=== PATIENT | female | born 1965 | race Caucasian/White ===

== ENCOUNTER 2018-04-11 16:11 | Inpatient (IN) | payer OTHER ==
[2018-04-11] VITALS (16 sets, daily range): BP systolic 122–171; BP diastolic 71–98
[~2018-04-11] VITALS: Ht 172.7 cm; Wt 111.9 kg
[2018-04-11 16:45] LABS: BASOPHILS # (AUTO) 0.1 X10'3 (0-0.2); BASOPHILS % (AUTO) 0.6 % (0-1); EOSINOPHILS # (AUTO) 0.1 X10'3 (0-0.9); EOSINOPHILS % (AUTO) 1.7 % (0-6); HEMATOCRIT 36.9 % (35.0-45.0); HEMOGLOBIN 12.5 g/dl (12.0-16.0); LYMPHOCYTES # (AUTO) 2.3 X10'3 (1.1-4.8); LYMPHOCYTES % (AUTO) 26.6 % (21-51); MEAN CORPUSCULAR HEMOGLOBIN 31.1 PG (27.0-31.0); MEAN CORPUSCULAR HGB CONC 33.9 % (33.0-36.5); MEAN CORPUSCULAR VOLUME 91.8 FL (78-98); MEAN PLATELET VOLUME 7.8 FL (7.4-10.4); MONOCYTES # (AUTO) 0.4 X10'3 (0-0.9); MONOCYTES % (AUTO) 4.5 % (2-12); NEUTROPHILS # (AUTO) 5.8 X10'3 (1.8-7.7); NEUTROPHILS % (AUTO) 66.6 % (42-75); PLATELET COUNT 176 X10'3 (140-440); RED BLOOD COUNT 4.02 X10'6 (4.20-5.60); RED CELL DISTRIBUTION WIDTH 15.1 % (11.5-14.5); WHITE BLOOD COUNT 8.7 X10'3 (4.5-11.0)
[2018-04-11] MEDS ORDERED: metroNIDAZOLE-Flagyl 500mg/NS 100 ML IV STA (16:48)
[2018-04-11] MEDS ORDERED: vancomycin/NS 1 GM ADD-VANTAGE 250 ML IV ONE (16:50)
[2018-04-11] MEDS ORDERED: piperacillin/tazo 3.375gm/50ml 50 ML IV ONE (16:50)
[2018-04-11 16:56] LABS: ABG HCO3 17.8 mmol/L (22.0-26.0); ABG OXYGEN SATURATION 98.8 % (95-98); ABG PCO2 (T) 41.7 mmHg (32.0-45.0); ABG PH (T) 7.248 (7.350-7.450); ABG PO2 (T) 160.2 mmHg (83-108); ALLEN'S TEST Positive; FCOHb 1.4 % (0.5-1.5); FMetHb 0.3 % (0.3-1.12); FO2Hb 97.1 % (94-100); MINUTE VOLUME 9 L/min; PEEP 5 cm H2O; RESPIRATORY RATE 18 b/min; RESPIRATORY RATE (OBSERVED) 18 b/min; TIDAL VOLUME 500 mL; TOTAL HEMOGLOBIN 12.9 G/dl (12.0-16.0)
[2018-04-11 17:01] LABS: ALANINE AMINOTRANSFERASE 275 U/L (12-78); ALBUMIN 2.6 G/DL (3.4-5.0); ALBUMIN/GLOBULIN RATIO 0.6 (1.1-1.5); ALKALINE PHOSPHATASE 78 IU/L (46-116); ANION GAP 16 (8-16); ASPARTATE AMINO TRANSFERASE 249 U/L (10-37); BILIRUBIN,TOTAL 0.2 MG/DL (0.1-1.0); BLOOD UREA NITROGEN 13 MG/DL (7-18); BUN/CREATININE RATIO 10.5 (6.6-38.0); CALCIUM 7.6 MG/DL (8.5-10.1); CHLORIDE 99 MMOL/L (99-107); CREATININE 1.24 MG/DL (0.40-0.90); GLUCOSE 209 MG/DL (70-104); SODIUM 135 MMOL/L (135-145); TOTAL CARBON DIOXIDE 19.7 MMOL/L (24-32); TOTAL PROTEIN 6.9 G/DL (6.4-8.2); eGFR 45 ML/MIN
[2018-04-11 17:02] LABS: POTASSIUM 4.4 MMOL/L (3.5-5.1)
[2018-04-11 17:03] LABS: ANISOCYTOSIS FEW; PLATELET ESTIMATE NORMAL; TOTAL CELLS COUNTED 100
[2018-04-11] MEDS ORDERED: propofol 1000mg/100ml bottle 100 ML IV PRN (17:15)
[2018-04-11] MEDS ORDERED: propofol 1000mg/100ml bottle 100 ML IV ONE (17:18)
[2018-04-11 17:28] LABS: CLARITY,URINE SLIGHTLY CLOUDY (Clear); COLOR,URINE YELLOW (Yellow); GLUCOSE, URINE 100 mg/dl (Neg); KETONES,URINE 15 mg/dl (Neg); LEUKOCYTE ESTERASE ,URINE NEGATIVE (Neg); NITRITES, URINE NEGATIVE (Neg); OCCULT BLOOD,URINE NEGATIVE (Neg); PH,URINE 5.5 (4.8-8.0); PROTEIN,URINE 30 mg/dl (Neg); UROBILINOGEN,URINE 0.2 E.U/dL (0.2-1.0)
[2018-04-11] MEDS ORDERED: normal saline 1000ML IV soln IV ONE (17:30)
[2018-04-11 17:34] LABS: UA COLLECTION TYPE STRAIGHT CATH
[2018-04-11 17:38] LABS: AMORPHOUS URATES 1+; BACTERIA,URINE FEW /HPF (Neg); HYALINE CASTS 0-3 /LPF (NEGATIVE); MUCUS STRANDS FEW /LPF (Neg); RBC,URINE 0-2 /HPF (0-2); SQUAMOUS EPITHELIAL CELL,UR FEW /LPF (FEW); WBC,URINE 0-4 /HPF (0-4)
[2018-04-11] MEDS ORDERED: ondansetron/PF 4mg/2ml inj IV PRN (18:20)
[2018-04-11] MEDS ORDERED: ipratropium/albuterol 3ml nebule NEB PRN (18:20)
[2018-04-11] MEDS ORDERED: fentaNYL/PF 50MCG/1 ML 2ML syringe IV PRN (18:20)
[2018-04-11] MEDS ORDERED: acetaminophen 650mg rectal suppository RC PRN (18:20)
[2018-04-11] MEDS ORDERED: acetaminophen 325mg tablet PO PRN ×2 (18:20)
[2018-04-11] MEDS: normal saline 1000ml 1,000 ML IV SCH (18:52)
[2018-04-11] MEDS: pantoprazole 40 MG vial IV SCH (18:52)
[2018-04-11] MEDS ORDERED: midazolam 2 mg/2 ml injection ONE (19:04)
[2018-04-11] MEDS ORDERED: magnesium 4gm in 100ml NS 100 ML IV PRN (19:10)
[2018-04-11] MEDS ORDERED: magnesium/D5W IVPB 50 ML IV PRN (19:10)
[2018-04-11] MEDS ORDERED: magnesium Cl slow-release 64mg tablet PO PRN (19:10)
[2018-04-11] MEDS ORDERED: Neutra Phos packet PO PRN (19:10)
[2018-04-11] MEDS ORDERED: potassium Cl 40MEQ/250ML bag 250 ML IV PRN ×2 (19:10)
[2018-04-11] MEDS ORDERED: sodium phosphate inj. 30 MMOL in dextrose 5%-water 250 ML IV PRN (19:10)
[2018-04-11] MEDS ORDERED: sodium phosphate inj. 15 MMOL in dextrose 5%-water 150 ML IV PRN (19:10)
[2018-04-11] MEDS ORDERED: K, MAG and/or Phos replacement - Verify level? MC PRN (19:10)
[2018-04-11] MEDS: midazolam 100mg in NS 100ml 100 ML IV PRN (19:12)
[2018-04-11] MEDS: vancomycin inj 1,250 MG in normal saline 250ml IV soln 250 ML IV SCH ×2 (19:14→19:17)
[2018-04-11 19:50] LABS: BETA HCG,QUANTITATIVE < 1.0 mIU/ml
[2018-04-11] MEDS ORDERED: CISatracurium **Bolus** 2 mg/ml inj IV PRN (19:55)
[2018-04-11] MEDS: mineral oil/petrolatum ophthal oint OP SCH (20:00)
[2018-04-11] MEDS: CISatracurium besylate inj. 200 MG in normal saline 250ml IV soln 180 ML IV PRN (20:54)
[2018-04-11 21:00] LABS: ALANINE AMINOTRANSFERASE 248 U/L (12-78); ALBUMIN 2.1 G/DL (3.4-5.0); ALBUMIN/GLOBULIN RATIO 0.6 (1.1-1.5); ALKALINE PHOSPHATASE 64 IU/L (46-116); ANION GAP 8 (8-16); ASPARTATE AMINO TRANSFERASE 225 U/L (10-37); BILIRUBIN,TOTAL 0.5 MG/DL (0.1-1.0); BLOOD UREA NITROGEN 14 MG/DL (7-18); BUN/CREATININE RATIO 13.2 (6.6-38.0); CALCIUM 6.8 MG/DL (8.5-10.1); CHLORIDE 107 MMOL/L (99-107); CREATININE 1.06 MG/DL (0.40-0.90); GLUCOSE 110 MG/DL (70-104); MAGNESIUM 1.4 MG/DL (1.5-2.4); PHOSPHORUS 2.6 MG/DL (2.3-4.5); POTASSIUM 4.1 MMOL/L (3.5-5.1); SODIUM 138 MMOL/L (135-145); TOTAL CARBON DIOXIDE 22.6 MMOL/L (24-32); TOTAL PROTEIN 5.6 G/DL (6.4-8.2); eGFR 54 ML/MIN
[2018-04-11 21:30] LABS: BASOPHILS % (AUTO) 0.4 % (0-1); EOSINOPHILS % (AUTO) 0.2 % (0-6); HEMATOCRIT 31.2 % (35.0-45.0); HEMOGLOBIN 10.7 g/dl (12.0-16.0); LYMPHOCYTES # (AUTO) 0.8 X10'3 (1.1-4.8); LYMPHOCYTES % (AUTO) 12.7 % (21-51); MEAN CORPUSCULAR HEMOGLOBIN 30.8 PG (27.0-31.0); MEAN CORPUSCULAR HGB CONC 34.1 % (33.0-36.5); MEAN CORPUSCULAR VOLUME 90.2 FL (78-98); MEAN PLATELET VOLUME 7.3 FL (7.4-10.4); MONOCYTES # (AUTO) 0.5 X10'3 (0-0.9); MONOCYTES % (AUTO) 7.3 % (2-12); NEUTROPHILS # (AUTO) 5.2 X10'3 (1.8-7.7); NEUTROPHILS % (AUTO) 79.4 % (42-75); PLATELET COUNT 186 X10'3 (140-440); RED BLOOD COUNT 3.47 X10'6 (4.20-5.60); RED CELL DISTRIBUTION WIDTH 14.9 % (11.5-14.5); WHITE BLOOD COUNT 6.6 X10'3 (4.5-11.0)
[2018-04-11] MEDS ORDERED: niCARDipine-NS 40mg/200ml IVPB 200 ML IV SCH (22:35)
[2018-04-11] MEDS ORDERED: niCARDipine/sod cl 20mg/200ml 200 ML IV ONE (22:44)
[2018-04-11] MEDS: niCARDipine/sod cl 20mg/200ml 200 ML IV SCH (22:57)
[2018-04-11 23:06] LABS: ABG BASE EXCESS -5.1 mmol/L (-2.0-3.0); ABG HCO3 18.8 mmol/L (22.0-26.0); ABG OXYGEN SATURATION 97.9 % (95-98); ABG PCO2 (T) 29.7 mmHg (32.0-45.0); ABG PH (T) 7.414 (7.350-7.450); ABG PO2 (T) 92.3 mmHg (83-108); ALLEN'S TEST Positive; FCOHb 0.9 % (0.5-1.5); FMetHb 0.3 % (0.3-1.12); FO2Hb 96.7 % (94-100); MINUTE VOLUME 9 L/min; PATIENT TEMPERATURE 35.7; PEEP 5 cm H2O; RESPIRATORY RATE 18 b/min; RESPIRATORY RATE (OBSERVED) 18 b/min; TIDAL VOLUME 500 mL; TOTAL HEMOGLOBIN 12.5 G/dl (12.0-16.0)
[2018-04-12] VITALS (39 sets, daily range): BP systolic 114–164; BP diastolic 61–95
[2018-04-12] MEDS ORDERED: DESMOPRESSIN IV ONE ×2 (00:50→01:00)
[2018-04-12] MEDS ORDERED: NORMAL SALINE IV ONE ×2 (00:50→01:00)
[2018-04-12] MEDS ORDERED: DESMOPRESSIN ONE (00:52)
[2018-04-12] MEDS: midazolam 100mg in NS 100ml 100 ML IV PRN ×2 (01:23→10:06)
[2018-04-12] MEDS: niCARDipine/sod cl 20mg/200ml 200 ML IV SCH (01:31)
[2018-04-12] MEDS: normal saline 1000ml 1,000 ML IV SCH ×3 (02:51→16:56)
[2018-04-12] MEDS: piperacillin/tazo 3.375gm/50ml 50 ML IV SCH ×4 (02:51→20:07)
[2018-04-12 03:08] LABS: BASOPHILS % (AUTO) 0 % (0-1); EOSINOPHILS % (AUTO) 0 % (0-6); HEMATOCRIT 37.7 % (35.0-45.0); HEMOGLOBIN 12.9 g/dl (12.0-16.0); LYMPHOCYTES # (AUTO) 1.1 X10'3 (1.1-4.8); LYMPHOCYTES % (AUTO) 10.2 % (21-51); MEAN CORPUSCULAR HEMOGLOBIN 31.2 PG (27.0-31.0); MEAN CORPUSCULAR HGB CONC 34.2 % (33.0-36.5); MEAN CORPUSCULAR VOLUME 91.3 FL (78-98); MEAN PLATELET VOLUME 7.5 FL (7.4-10.4); MONOCYTES # (AUTO) 0.5 X10'3 (0-0.9); MONOCYTES % (AUTO) 4.4 % (2-12); NEUTROPHILS # (AUTO) 9.3 X10'3 (1.8-7.7); NEUTROPHILS % (AUTO) 85.4 % (42-75); PLATELET COUNT 204 X10'3 (140-440); RED BLOOD COUNT 4.13 X10'6 (4.20-5.60); RED CELL DISTRIBUTION WIDTH 14.7 % (11.5-14.5); WHITE BLOOD COUNT 10.9 X10'3 (4.5-11.0)
[2018-04-12 03:24] LABS: ALANINE AMINOTRANSFERASE 298 U/L (12-78); ALBUMIN 2.6 G/DL (3.4-5.0); ALBUMIN/GLOBULIN RATIO 0.6 (1.1-1.5); ALKALINE PHOSPHATASE 81 IU/L (46-116); ANION GAP 18 (8-16); ASPARTATE AMINO TRANSFERASE 205 U/L (10-37); BILIRUBIN,TOTAL 0.4 MG/DL (0.1-1.0); BLOOD UREA NITROGEN 10 MG/DL (7-18); BUN/CREATININE RATIO 13.5 (6.6-38.0); CALCIUM 6.8 MG/DL (8.5-10.1); CHLORIDE 100 MMOL/L (99-107); CREATININE 0.74 MG/DL (0.40-0.90); GLUCOSE 230 MG/DL (70-104); MAGNESIUM 1.3 MG/DL (1.5-2.4); PHOSPHORUS 2.7 MG/DL (2.3-4.5); POTASSIUM 3.2 MMOL/L (3.5-5.1); SODIUM 137 MMOL/L (135-145); TOTAL CARBON DIOXIDE 19.2 MMOL/L (24-32); TOTAL PROTEIN 7.1 G/DL (6.4-8.2); eGFR 82 ML/MIN
[2018-04-12 03:34] LABS: PARTIAL THROMBOPLASTIN TIME 22 SECONDS (22-32); PROTHROMBIN TIME 10.1 SECONDS (9.0-12.0)
[2018-04-12] MEDS: FENTANYL-0.9 % NACL/PF 100 ML IV PRN ×2 (03:36→19:44)
[2018-04-12] MEDS: mineral oil/petrolatum ophthal oint OP SCH ×6 (04:15→20:06)
[2018-04-12 05:10] LABS: ABG BASE EXCESS -11.4 mmol/L (-2.0-3.0); ABG HCO3 14.1 mmol/L (22.0-26.0); ABG OXYGEN SATURATION 95.6 % (95-98); ABG PCO2 (T) 25.8 mmHg (32.0-45.0); ABG PH (T) 7.334 (7.350-7.450); ABG PO2 (T) 64.9 mmHg (83-108); ALLEN'S TEST Positive; FCOHb 0.7 % (0.5-1.5); FMetHb 0.3 % (0.3-1.12); FO2Hb 94.6 % (94-100); MINUTE VOLUME 9 L/min; PATIENT TEMPERATURE 32.6; PEEP 5 cm H2O; RESPIRATORY RATE 18 b/min; RESPIRATORY RATE (OBSERVED) 18 b/min; TIDAL VOLUME 500 mL; TOTAL HEMOGLOBIN 13.4 G/dl (12.0-16.0)
[2018-04-12] MEDS ORDERED: dextrose 50%-water 50ml dispensing syringe IV PRN (06:30)
[2018-04-12] MEDS: insulin regular, human 100 UNIT in normal saline 100ml IV soln 99 ML IV SCH ×2 (07:27)
[2018-04-12 08:25] LABS: ALBUMIN 2.3 G/DL (3.4-5.0); ANION GAP 13 (8-16); BLOOD UREA NITROGEN 8 MG/DL (7-18); BUN/CREATININE RATIO 10.5 (6.6-38.0); CALCIUM 6.6 MG/DL (8.5-10.1); CHLORIDE 103 MMOL/L (99-107); CREATININE 0.76 MG/DL (0.40-0.90); GLUCOSE 160 MG/DL (70-104); MAGNESIUM 1.3 MG/DL (1.5-2.4); POTASSIUM 3.7 MMOL/L (3.5-5.1); SODIUM 137 MMOL/L (135-145); TOTAL CARBON DIOXIDE 20.8 MMOL/L (24-32); eGFR 80 ML/MIN
[2018-04-12] MEDS: pantoprazole 40 MG vial IV SCH (08:50)
[2018-04-12] MEDS: enoxaparin 40mg/0.4ml syringe SUBCUT SCH (08:51)
[2018-04-12 11:20] LABS: TOTAL PROTEIN,URINE RANDOM 7.7 MG/DL
[2018-04-12 13:15] LABS: CKMB RELATIVE INDEX 0.3 RATIO (0-2.5); CREATINE KINASE 775 U/L (26-192); TROPONIN I < 0.04 NG/ML (0.0-0.05)
[2018-04-12 14:29] LABS: ALBUMIN 2.3 G/DL (3.4-5.0); ANION GAP 14 (8-16); BLOOD UREA NITROGEN 5 MG/DL (7-18); BUN/CREATININE RATIO 8.3 (6.6-38.0); CALCIUM 6.9 MG/DL (8.5-10.1); CHLORIDE 101 MMOL/L (99-107); GLUCOSE 158 MG/DL (70-104); MAGNESIUM 2.6 MG/DL (1.5-2.4); PHOSPHORUS 1.7 MG/DL (2.3-4.5); POTASSIUM 3.1 MMOL/L (3.5-5.1); SODIUM 134 MMOL/L (135-145); TOTAL CARBON DIOXIDE 18.7 MMOL/L (24-32); eGFR > 90 ML/MIN
[2018-04-12 15:35] LABS: OXYGEN SATURATION (MIXED VEN) 84.3 % (60-80); PO2 MIXED VENOUS (TEMP COR) 37.7 mmHg (35-46)
[2018-04-12 15:40] LABS: ABG OXYGEN SATURATION 99.4 % (95-98); ABG PCO2 (T) 24.4 mmHg (32.0-45.0); ABG PO2 (T) 141.6 mmHg (83-108); ALLEN'S TEST Positive; FMetHb 0.3 % (0.3-1.12); FO2Hb 98.1 % (94-100); MINUTE VOLUME 9 L/min; PATIENT TEMPERATURE 32.3; PEEP 5 cm H2O; RESPIRATORY RATE 18 b/min; RESPIRATORY RATE (OBSERVED) 18 b/min; TIDAL VOLUME 500 mL; TOTAL HEMOGLOBIN 12.7 G/dl (12.0-16.0)
[2018-04-12] MEDS ORDERED: desmopressin 0.1mg/ml nasal spray 5ml btl NS SCH (20:00)
[2018-04-12] MEDS ORDERED: mineral oil/petrolatum ophthal oint EACHEYE SCH (20:00)
[2018-04-12 20:32] LABS: CKMB RELATIVE INDEX 0.6 RATIO (0-2.5); CREATINE KINASE 658 U/L (26-192); TROPONIN I < 0.04 NG/ML (0.0-0.05)
[2018-04-12 21:16] LABS: ABG BASE EXCESS -5.3 mmol/L (-2.0-3.0); ABG HCO3 17.4 mmol/L (22.0-26.0); ABG OXYGEN SATURATION 98.7 % (95-98); ABG PCO2 (T) 21.6 mmHg (32.0-45.0); ABG PH (T) 7.505 (7.350-7.450); ABG PO2 (T) 93.6 mmHg (83-108); ALLEN'S TEST Positive; FCOHb 0.8 % (0.5-1.5); FMetHb 0.3 % (0.3-1.12); FO2Hb 97.6 % (94-100); MINUTE VOLUME 9 L/min; PATIENT TEMPERATURE 32.5; PEEP 5 cm H2O; RESPIRATORY RATE 18 b/min; RESPIRATORY RATE (OBSERVED) 18 b/min; TIDAL VOLUME 500 mL; TOTAL HEMOGLOBIN 12.4 G/dl (12.0-16.0)
[2018-04-12 21:59] LABS: ALBUMIN 2.2 G/DL (3.4-5.0); ANION GAP 17 (8-16); BLOOD UREA NITROGEN 5 MG/DL (7-18); BUN/CREATININE RATIO 9.3 (6.6-38.0); CALCIUM 6.8 MG/DL (8.5-10.1); CHLORIDE 102 MMOL/L (99-107); CREATININE 0.54 MG/DL (0.40-0.90); GLUCOSE 96 MG/DL (70-104); PHOSPHORUS 1.5 MG/DL (2.3-4.5); SODIUM 136 MMOL/L (135-145); TOTAL CARBON DIOXIDE 17.3 MMOL/L (24-32); eGFR > 90 ML/MIN
[2018-04-12 22:01] LABS: POTASSIUM 2.9 MMOL/L (3.5-5.1)
[2018-04-13] VITALS (15 sets, daily range): BP systolic 98–154; BP diastolic 64–85
[2018-04-13] MEDS: mineral oil/petrolatum ophthal oint OP SCH ×4 (00:32→12:29)
[2018-04-13] MEDS: midazolam 100mg in NS 100ml 100 ML IV PRN (01:14)
[2018-04-13] MEDS: CISatracurium besylate inj. 200 MG in normal saline 250ml IV soln 180 ML IV PRN (01:34)
[2018-04-13] MEDS: piperacillin/tazo 3.375gm/50ml 50 ML IV SCH ×2 (02:11→07:56)
[2018-04-13 02:37] LABS: BASOPHILS % (AUTO) 0.3 % (0-1); EOSINOPHILS % (AUTO) 0.2 % (0-6); HEMATOCRIT 32.6 % (35.0-45.0); HEMOGLOBIN 11.1 g/dl (12.0-16.0); LYMPHOCYTES # (AUTO) 0.5 X10'3 (1.1-4.8); LYMPHOCYTES % (AUTO) 10.3 % (21-51); MEAN CORPUSCULAR HEMOGLOBIN 30.8 PG (27.0-31.0); MEAN CORPUSCULAR VOLUME 90.8 FL (78-98); MEAN PLATELET VOLUME 7.2 FL (7.4-10.4); MONOCYTES # (AUTO) 0.3 X10'3 (0-0.9); MONOCYTES % (AUTO) 5.8 % (2-12); NEUTROPHILS # (AUTO) 4.4 X10'3 (1.8-7.7); NEUTROPHILS % (AUTO) 83.4 % (42-75); PLATELET COUNT 196 X10'3 (140-440); RED BLOOD COUNT 3.59 X10'6 (4.20-5.60); RED CELL DISTRIBUTION WIDTH 14.7 % (11.5-14.5); WHITE BLOOD COUNT 5.3 X10'3 (4.5-11.0)
[2018-04-13 02:50] LABS: INR 0.9 INR; PARTIAL THROMBOPLASTIN TIME 27 SECONDS (22-32); PROTHROMBIN TIME 9.6 SECONDS (9.0-12.0)
[2018-04-13 03:07] LABS: ALANINE AMINOTRANSFERASE 192 U/L (12-78); ALBUMIN 1.9 G/DL (3.4-5.0); ALBUMIN/GLOBULIN RATIO 0.5 (1.1-1.5); ALKALINE PHOSPHATASE 69 IU/L (46-116); ANION GAP 15 (8-16); ASPARTATE AMINO TRANSFERASE 103 U/L (10-37); BILIRUBIN,TOTAL 0.3 MG/DL (0.1-1.0); BLOOD UREA NITROGEN 5 MG/DL (7-18); BUN/CREATININE RATIO 11.9 (6.6-38.0); CALCIUM 6.1 MG/DL (8.5-10.1); CHLORIDE 103 MMOL/L (99-107); CKMB RELATIVE INDEX 0.6 RATIO (0-2.5); CREATINE KINASE 531 U/L (26-192); CREATININE 0.42 MG/DL (0.40-0.90); GLUCOSE 73 MG/DL (70-104); MAGNESIUM 1.8 MG/DL (1.5-2.4); PHOSPHORUS 2.2 MG/DL (2.3-4.5); SODIUM 137 MMOL/L (135-145); TOTAL CARBON DIOXIDE 19.4 MMOL/L (24-32); TOTAL PROTEIN 5.8 G/DL (6.4-8.2); TROPONIN I < 0.04 NG/ML (0.0-0.05); eGFR > 90 ML/MIN
[2018-04-13 03:16] LABS: POTASSIUM 2.7 MMOL/L (3.5-5.1)
[2018-04-13] MEDS: normal saline 1000ml 1,000 ML IV SCH (03:29)
[2018-04-13 03:35] LABS: ABG BASE EXCESS -6.5 mmol/L (-2.0-3.0); ABG HCO3 17.5 mmol/L (22.0-26.0); ABG OXYGEN SATURATION 98.1 % (95-98); ABG PCO2 (T) 26.3 mmHg (32.0-45.0); ABG PH (T) 7.427 (7.350-7.450); ABG PO2 (T) 91.1 mmHg (83-108); ALLEN'S TEST Positive; FCOHb 0.8 % (0.5-1.5); FMetHb 0.3 % (0.3-1.12); MINUTE VOLUME 8 L/min; PATIENT TEMPERATURE 33.9; PEEP 5 cm H2O; RESPIRATORY RATE 16 b/min; RESPIRATORY RATE (OBSERVED) 16 b/min; TIDAL VOLUME 500 mL; TOTAL HEMOGLOBIN 11.6 G/dl (12.0-16.0)
[2018-04-13] MEDS: insulin regular, human 100 UNIT in normal saline 100ml IV soln 99 ML IV SCH ×2 (06:30)
[2018-04-13] MEDS ORDERED: UNABLE TO OBTAIN (07:55)
[2018-04-13] MEDS: pantoprazole 40 MG vial IV SCH (07:55)
[2018-04-13] MEDS: enoxaparin 40mg/0.4ml syringe SUBCUT SCH (07:56)
[2018-04-13 08:34] LABS: ANION GAP 12 (8-16); BLOOD UREA NITROGEN 6 MG/DL (7-18); BUN/CREATININE RATIO 9.1 (6.6-38.0); CHLORIDE 103 MMOL/L (99-107); CREATININE 0.66 MG/DL (0.40-0.90); GLUCOSE 110 MG/DL (70-104); POTASSIUM 3.1 MMOL/L (3.5-5.1); SODIUM 135 MMOL/L (135-145); TOTAL CARBON DIOXIDE 20.1 MMOL/L (24-32)
[2018-04-13 08:35] LABS: MAGNESIUM 1.6 MG/DL (1.5-2.4); PHOSPHORUS 2.5 MG/DL (2.3-4.5); eGFR > 90 ML/MIN
[2018-04-13 08:37] LABS: CALCIUM 5.9 MG/DL (8.5-10.1)
[2018-04-13] MEDS ORDERED: phenytoin sod inj 1,000 MG in normal saline 100ml IV soln 80 ML IV ONE ×2 (09:55→12:00)
[2018-04-13] MEDS ORDERED: FOSphenytoin 500mg inj. 1,000 MG in normal saline 100ml IV soln 100 ML IV ONE ×2 (10:05→12:05)
[2018-04-13] MEDS ORDERED: magnesium 4gm in 100ml NS 100 ML IV ONE (10:25)
[2018-04-13] MEDS ORDERED: VANCOMYCIN LEVEL IV NR (10:30)
[2018-04-13] MEDS ORDERED: LORazepam 2 mg/ml vial IV PRN ×2 (11:15)
[2018-04-13] MEDS ORDERED: propofol 1000mg/100ml bottle 100 ML IV ONE (11:21)
[2018-04-13] MEDS ORDERED: propofol 1000mg/100ml bottle 100 ML IV PRN (11:24)
[2018-04-13] MEDS ORDERED: calcium chloride 100 MG/1 ML inj IV ONE (11:30)
[2018-04-13] MEDS: LORazepam 2 mg/ml vial IV PRN ×4 (11:42→14:00)
[2018-04-13] MEDS ORDERED: phenytoin sod 50mg/ml 2ml vial IV SCH (16:00)
[2018-04-13] MEDS ORDERED: FOSphenytoin 100mg/2ml inj IV SCH (16:00)
[2018-04-13] MEDS ORDERED: lactulose 20gm/30ml cup PO PRN (18:20)
[2018-04-13] MEDS ORDERED: bisacodyl 10mg suppository rectal RC PRN (18:20)
[2018-04-15] MEDS ORDERED: VANCOMYCIN LEVEL IV NR (03:30)
== END 2018-04-13 15:57 | disposition short-term general hospital (02) | DRG 393 ==
LOC: ER 16:12 → ED HOLD 18:20 → ICU 2S 19:58
PROVIDERS: ATTEND Internal Medicine Critical Care Medicine
PROC: 5A1945Z Respiratory Ventilation, 24-96 Consecutive Hours (ICD-10-PCS; principal; 2018-04-11)
PROC: 0BH17EZ Insertion of Endotracheal Airway into Trachea, Via Natural or Artificial Opening (ICD-10-PCS; 2018-04-11)
PROC: 02HV33Z Insertion of Infusion Device into Superior Vena Cava, Percutaneous Approach (ICD-10-PCS; 2018-04-11)
PROC: B548ZZA Ultrasonography of Superior Vena Cava, Guidance (ICD-10-PCS; 2018-04-11)
PROC: 5A12012 Performance of Cardiac Output, Single, Manual (ICD-10-PCS; 2018-04-11)
PROC: 4A00X4Z Measurement of Central Nervous Electrical Activity, External Approach (ICD-10-PCS; 2018-04-13)
DX: T18.120A Food in esophagus causing compression of trachea, initial encounter (principal); I46.9 Cardiac arrest, cause unspecified; G93.1 Anoxic brain damage, not elsewhere classified; E87.2 Acidosis; F31.9 Bipolar disorder, unspecified; G40.901 Epilepsy, unspecified, not intractable, with status epilepticus; G89.29 Other chronic pain; G47.00 Insomnia, unspecified; X58.XXXA Exposure to other specified factors, initial encounter; Y93.89 Activity, other specified; Y92.89 Other specified places as the place of occurrence of the external cause; Y99.8 Other external cause status
CPT/HCPCS: 36415; 36556; 36600; 70450; 71045; 74176; 80048; 80053; 80202; 81001; 82330; 82550; 82553; 82570; 82803; 82810; 82945; 82948; 83605; 83735; 83935; 84100; 84133; 84145; 84156; 84300; 84484; 84540; 84702; 85018; 85025; 85610; 85730; 86885; 86900; 86901; 87040; 87070; 93005; 93306; 94002; 94003; 94760; 95813; 96365; 99291; A6213; C1751; C1758; C9113; J1650; J1815; J2060; J2250; J2543; J2597; J2704; J3370; J3475; J3480; J3490; J7030; Q2009